=== PATIENT | male | born 1995 | race Caucasian/White ===

== ENCOUNTER 2016-12-07 19:07 | Emergency (ER) | payer OTHER ==
[2016-12-07] MEDS ORDERED: IBUPROFEN 600 MG TAB As Ordered ONE (19:55)
[2016-12-07 20:15] LABS: EOS # 0.1 K/mm3 (0.0-0.50); EOS % 0.8 % (0.0-3.0); LARGE UNSTAINED CELL # 0.1 K/mm3 (0.0-0.4); LARGE UNSTAINED CELL % 0.9 % (0.0-4.0); LYMPH # 0.6 K/mm3 (1.5-6.5); LYMPH % 8.7 % (24.0-44.0); MEAN CORPUSCULAR HEMOGLOBIN 30.9 pg (27.0-33.0); MEAN CORPUSCULAR HGB CONC 34.7 g/dl (32.0-36.5); MEAN CORPUSCULAR VOLUME 89.1 fl (80.0-96.0); MONO # 0.3 K/mm3 (0.0-0.8); MONO % 4.6 % (0.0-5.0); NEUTROPHILS # 5.6 K/mm3 (1.8-7.7); NEUTROPHILS % 84.8 % (36.0-66.0); PLATELET COUNT, AUTOMATED 194 k/mm3 (150-450); RED CELL DISTRIBUTION WIDTH 11.8 % (11.5-14.5); WHITE BLOOD COUNT 6.5 K/mm3 (4.0-10.0)
[2016-12-07 20:40] LABS: ANION GAP 7 MEQ/L (8-16); BLOOD UREA NITROGEN 8 MG/DL (7-18); CALCIUM LEVEL 8.4 MG/DL (8.5-10.1); CARBON DIOXIDE LEVEL 29 MEQ/L (21-32); CHLORIDE LEVEL 103 MEQ/L (98-107); GLOMERULAR FILTRATION RATE > 60.0 (>60); GLUCOSE, FASTING 106 MG/DL (70-105); POTASSIUM SERUM 3.6 MEQ/L (3.5-5.1); SODIUM LEVEL 139 MEQ/L (136-145)
[2016-12-07] MEDS ORDERED: ACETAMINOPHEN 325 MG TAB As Ordered ONE (21:33)
--- NOTE | 2016-12-07 23:03 | EDDOCDS ---
Nurse's Notes [facility] Name: Robert Casper Age: 21 yrs Sex: Male : 1995 Arrival Date: 12/07/2016 Time: 19:07 Bed 5 Private MD: Odette العراقي Diagnosis: Viral infection, unspecified Presentation: 12/07 19:09 Presenting complaint: Patient states: cold chills, diarrhea on an off for a week. has rs3 tried pseudofed, Motrin and Tylenol with no relief. Adult Sepsis Screening: The patient does not have new or worsening altered mentation. Patient's respiratory rate is less than 22. Systolic blood pressure is greater than 100. Patient has a qSOFA score of 0- Negative Sepsis Screen. Suicide/Homicide risk assessment- the patient denies having any suicidal and/or homicidal ideations and does not present with any other emotional, behavioral or mental health complaints. Status: The patient is an active duty truck service manager. Transition of care: patient was not received from another setting of care. 19:09 Acuity: EDEL Level 4 rs3 19:09 Method Of Arrival: Walkin/Carried/Asstd rs3 Triage Assessment: 19:11 General: Appears in no apparent distress. Pain: Location: abdomen. HIV screening NA for rs3 this visit Offered previously. GI: Reports upper abd pain, nausea. Historical: - Allergies: no known allergies; - Home Meds: 1. acetaminophen 500 mg Oral tab (Last dose: 12/07/2016 16:00) - PMHx: none; - PSHx: right arm surgery; - The history from nurses notes was reviewed: and elements of the historical information I have obtained differs from that reported to nursing. - Social history: Smoking status: Patient uses tobacco products, current some day smoker. No barriers to communication noted, The patient speaks fluent Bulgarian. - : The pt / caregiver states he / she is not on anticoagulants. Home medication list is obtained from the patient. - Hospitalizations: : No recent hospitalization is reported. - Exposure Risk Screening:: None identified. - Immunization history:: All immunizations up-to-date. - Family history: Not pertinent. - Social history:: the patient is a non-smoker, the patient drinks alcohol. Screenin:52 Screening information is obtained from the patient. Fall risk: No risks identified. nn1 Assistance ADL's: requires no assistance with activities of daily living. Abuse/DV Screen: The patient / caregiver reports he/she is: not in a situation that causes fear, pain or injury. Nutritional screening: No deficits noted. Advance Directives: There is no active DNR order. home support is adequate. Assessment: 19:49 General: Appears in no apparent distress, uncomfortable, Behavior is appropriate for nn1 age, cooperative. Pain: Location: abdomen Pain currently is 10 out of 10 on a pain scale. Pain began earlier today. Neurological: Level of Consciousness is awake, alert, obeys commands, Oriented to person, place, time. Respiratory: Airway is patent Respiratory effort is even, unlabored, Respiratory pattern is regular, symmetrical. GI: Abdomen is flat, non- distended Bowel sounds present X 4 quads. Abd is soft X 4 quads Abd is tender to palpation X 4 quads. Reports cramping, diarrhea, nausea, vomiting, diarrhea x 8 days, vomiting and abdominal pain began today. Denies blood in stool. Derm: Skin is pink, warm & dry. 20:21 General: Patient had bowel movement, scant amount of stool. Patient states he feels the nn1 urge to go but only produces scant amount of stool each time. Patient reports this has occurred since the first episode of diarrhea 8 days ago, reports increased abdominal pain following bowel movement. GI: Stools are reported to be diarrhea. 21:56 General: Appears in no apparent distress, comfortable, Behavior is appropriate for age, nn1 cooperative. Neurological: Level of Consciousness is awake, alert, obeys commands. Respiratory: Airway is patent Respiratory effort is even, unlabored, Respiratory pattern is regular, symmetrical. Derm: Skin is pink, warm & dry. 23:00 General: Appears in no apparent distress, comfortable, Behavior is appropriate for age, nn1 cooperative. Neurological: Level of Consciousness is awake, alert, obeys commands, Oriented to person, place, time. Respiratory: Airway is patent Respiratory effort is even, unlabored, Respiratory pattern is regular, symmetrical. Derm: Skin is pink, warm & dry. Vital Signs: 19:10 BP 121 / 74; Pulse 98; Resp 16; Temp 101.9(O); Pulse Ox 95% on R/A; Weight 74.84 kg elp (R); Height 6 ft. 0 in. (182.88 cm); 21:23 Temp 102.0(R); jmv 22:43 Temp 100.4(O); jmv 22:47 BP 130 / 62; Pulse 69; Resp 18; Pulse Ox 100% on R/A; Pain 5/10; mdr 19:10 Body Mass Index 22.38 (74.84 kg, 182.88 cm) [facility] Vitals: 19:10 Log In Time: December 07, 2016 at 19:08. [facility] ED Course: 19:09 Patient visited by Kaykay Barr PCA. elp 19:09 [facility] is Private Physician. elp 19:09 Patient moved to Waiting elp 19:10 Patient visited by Kaykay Barr PCA. elp 19:10 Patient moved to Pre RCE elp 19:11 Triage Initiated rs3 19:33 Camila Walker RN is Primary Nurse. kmg1 19:33 Matty Boucher MD is Attending Physician. pc 19:33 Patient moved to 5 kmg1 19:44 Patient visited by Matty Boucher MD. pc 20:06 MED Profile Sent. nn1 20:06 CBC with Diff Sent. nn1 20:06 -Influenza A&B Rapid Antigen - Nose Sent. nn1 20:06 Inserted saline lock: 20 gauge in right antecubital area and blood collected. The nn1 patient tolerated the procedure well. 20:08 Primary Nurse role handed off by Camila Walker, DANIEL sls1 20:49 Patient visited by Matty Boucher MD. pc 21:07 [facility] Payment Agreement was scanned into [employer] and attached to record. ks16 21:15 Patient visited by Sarah Rodriguez RN. kas2 21:23 Patient visited by Enzo Monreal PCA. jmv 21:56 Patient visited by Viridiana Quinteros RN. nn1 22:43 Patient visited by Enzo Monreal PCA. jmv 22:47 [facility] is Referral Physician. pc 22:51 Patient visited by Joesph Mccormick PCA. mdr 23:01 The patient / caregiver is instructed regarding the plan of care and ED course. nn1 23:01 No procedures done that require assistance. nn1 Administered Medications: 20:06 Drug: Ibuprofen 600 mg [ibuprofen 600 mg tablet (1 tabs)] Route: PO; nn1 21:36 Drug: Acetaminophen 975 mg [acetaminophen 325 mg tablet (3 tabs)] Route: PO; nn1 Order Results: Lab Order: MED Profile; SPEC'12/07/16 19:57 Test: GLUCOSE, FASTING; Value: 106; Range: 70-105; Abnormal: Above high normal; Units: MG/DL; Status: F Test: BLOOD UREA NITROGEN; Value: 8; Range: 7-18; Units: MG/DL; Status: F Test: CREATININE FOR GFR; Value: 1.10; Range: 0.70-1.30; Units: MG/DL; Status: F Test: GLOMERULAR FILTRATION RATE; Value: > 60.0; Range: >60; Status: F Test: SODIUM LEVEL; Value: 139; Range: 136-145; Units: MEQ/L; Status: F Test: POTASSIUM SERUM; Value: 3.6; Range: 3.5-5.1; Units: MEQ/L; Status: F Test: CHLORIDE LEVEL; Value: 103; Range: 98-107; Units: MEQ/L; Status: F Test: CARBON DIOXIDE LEVEL; Value: 29; Range: 21-32; Units: MEQ/L; Status: F Test: ANION GAP; Value: 7; Range: 8-16; Abnormal: Below low normal; Units: MEQ/L; Status: F Test: CALCIUM LEVEL; Value: 8.4; Range: 8.5-10.1; Abnormal: Below low normal; Units: MG/DL; Status: F Test Note: ; Units are mL/min/1.73 m2 Chronic Kidney Disease Staging per NKF: Stage I & II GFR >=60 Normal to Mildly Decreased Stage III GFR 30-59 Moderately Decreased Stage IV GFR 15-29 Severely Decreased Stage V GFR <15 Very Little GFR Left ESRD GFR <15 on SCRAP DROP OPERATOR Lab Order: CBC with Diff; SPEC'12/07/16 19:57 Test: WHITE BLOOD COUNT; Value: 6.5; Range: 4.0-10.0; Units: K/mm3; Status: F Test: RED BLOOD COUNT; Value: 4.75; Range: 4.30-6.10; Units: M/mm3; Status: F Test: HEMOGLOBIN; Value: 14.7; Range: 14.0-18.0; Units: g/dl; Status: F Test: HEMATOCRIT; Value: 42.3; Range: 42.0-52.0; Units: %; Status: F Test: MEAN CORPUSCULAR VOLUME; Value: 89.1; Range: 80.0-96.0; Units: fl; Status: F Test: MEAN CORPUSCULAR HEMOGLOBIN; Value: 30.9; Range: 27.0-33.0; Units: pg; Status: F Test: MEAN CORPUSCULAR HGB CONC; Value: 34.7; Range: 32.0-36.5; Units: g/dl; Status: F Test: RED CELL DISTRIBUTION WIDTH; Value: 11.8; Range: 11.5-14.5; Units: %; Status: F Test: PLATELET COUNT, AUTOMATED; Value: 194; Range: 150-450; Units: k/mm3; Status: F Test: NEUTROPHILS %; Value: 84.8; Range: 36.0-66.0; Abnormal: Above high normal; Units: %; Status: F Test: LYMPH %; Value: 8.7; Range: 24.0-44.0; Abnormal: Below low normal; Units: %; Status: F Test: MONO %; Value: 4.6; Range: 0.0-5.0; Units: %; Status: F Test: EOS %; Value: 0.8; Range: 0.0-3.0; Units: %; Status: F Test: BASO %; Value: 0.0; Range: 0.0-1.0; Units: %; Status: F Test: LARGE UNSTAINED CELL %; Value: 0.9; Range: 0.0-4.0; Units: %; Status: F Test: NEUTROPHILS #; Value: 5.6; Range: 1.8-7.7; Units: K/mm3; Status: F Test: LYMPH #; Value: 0.6; Range: 1.5-6.5; Abnormal: Below low normal; Units: K/mm3; Status: F Test: MONO #; Value: 0.3; Range: 0.0-0.8; Units: K/mm3; Status: F Test: EOS #; Value: 0.1; Range: 0.0-0.50; Units: K/mm3; Status: F Test: BASO #; Value: 0.0; Range: 0.0-0.2; Units: K/mm3; Status: F Test: LARGE UNSTAINED CELL #; Value: 0.1; Range: 0.0-0.4; Units: K/mm3; Status: F Lab Order: -Influenza A&B Rapid Antigen - Nose; SPEC'M 12/07/16 19:57 Test: INFLUENZA A RAPID SCR by ICA; Value: INFLUENZA A RESULTS NEGATIVE; Status: F Test: INFLUENZA A RAPID SCR by ICA; Value: Comments:; Status: F Test: INFLUENZA B RAPID SCR by ICA; Value: INFLUENZA B RESULTS NEGATIVE; Status: F Test Note: ; The Influenza test is a direct rapid immunoassay for the qualitative detection of Influenza viral antigen. Cell culture (Viral Culture) testing should be considered to confirm NEGATIVE results and to assist in detecting other viruses that can provide similar clinical symptoms. Please contact the lab within 24 hours ([phone]) if confirmatory testing is desired. Outcome: 22:47 Discharge ordered by Provider. 23:01 Discharge Assessment: Patient awake, alert and oriented x 3. No cognitive and/or nn1 functional deficits noted. Patient verbalized understanding of disposition instructions. patient administered narcotics - no. The following High Risk Discharge criteria are identified: None. Discharged to home ambulatory. Condition: stable Condition: improved. No special radiology studies were completed. Property :Personal belongings accompany Pt. 23:02 Patient left the ED. nn1 Signatures: Matty Boucher MD MD pc Garrison, Kelly, RN RN kmg1 Kellee WhittingtonRN RN rs3 Raegan Wilkinson RN RN sls1 Kaykay Barr, GUEST SERVICE SUPERVISOR GUEST SERVICE SUPERVISOR Viridiana Bess RN RN nn1 Joesph Mccormick, GUEST SERVICE SUPERVISOR GUEST SERVICE SUPERVISOR Jazz Borja, Reg Reg ks16 Sarah Rodriguez,RN RN kas2 Enzo Monreal, GUEST SERVICE SUPERVISOR GUEST SERVICE SUPERVISOR carolynv Corrections: (The following items were deleted from the chart) 19:11 19:09 Status: Patient is not a truck service manager or dependent. rs3 rs3 19:56 19:11 Home Meds: none; rs3 MTDD
--- NOTE | 2016-12-07 23:03 | EDDOCDS ---
Physician Documentation [facility] Name: Robert Casper Age: 21 yrs Sex: Male : 1995 Arrival Date: 12/07/2016 Time: 19:07 Bed 5 [facility] Disposition: 12/07 22:44 Critical Care: Critical care not applicable. pc Disposition: 12/07/16 22:47 Discharged to Home/Self Care. Impression: Viral infection, unspecified. - Condition is Stable. - Discharge Instructions: Viral Infections. - Prescriptions for Ibuprofen 600 mg Oral Tablet - take 1 tablet by ORAL route every 6 hours As needed take with food; 30 tablet. - Medication Reconciliation, Local Pharmacy Hours form. - [facility]; When: 2 - 3 days; Reason: Recheck today's complaints, Continuance of care. - Problem is an ongoing problem. - Symptoms have improved. HPI: 19:52 This 21 yrs old Male presents to ER via Walkin/Carried/Asstd with complaints pc of Nausea, Diarrhea, Fever. 19:52 The history is obtained from the patient. He has had intermittent fevers, chills, a pc cough and sinus congestion, with intermittent diarrhea, for 8 days. He was advised to use OTCs by his PCP. He has not had any relief. 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 The patient has experienced similar episodes in the past, a few times. Historical: - Allergies: no known allergies; - Home Meds: 1. acetaminophen 500 mg Oral tab (Last dose: 12/07/2016 16:00) - PMHx: none; - PSHx: right arm surgery; - The history from nurses notes was reviewed: and elements of the historical information I have obtained differs from that reported to nursing. - Social history: Smoking status: Patient uses tobacco products, current some day smoker. No barriers to communication noted, The patient speaks fluent Tajik. - : The pt / caregiver states he / she is not on anticoagulants. Home medication list is obtained from the patient. - Hospitalizations: : No recent hospitalization is reported. - Exposure Risk Screening:: None identified. - Immunization history:: All immunizations up-to-date. - Family history: Not pertinent. - Social history:: the patient is a non-smoker, the patient drinks alcohol. ROS: 19:55 All systems are negative except as listed. pc Exam: 19:55 General Appearance: no acute distress, alert. pc 19:55 EENT: normal eye inspection, ears, nose and throat normal, pharynx normal, mucous membranes moist 19:55 Neck: The exam reveals no acute abnormalities. ROM is normal and painless. No nuchal rigidity is noted.. 19:55 Respiratory: no respiratory distress, normal breath sounds. 19:55 CVS: regular pulse rate, regular rhythm, normal S1 and S2, no murmurs, strong peripheral pulses. 19:55 Abdomen: soft, non-tender, no organomegaly, bowel sounds hyperactive. 19:55 Back: normal inspection. 19:55 Skin: skin color is normal, warm, dry. 19:55 Extremities: The extremities have a grossly normal appearance, are non-tender, without acute ROM abnormalities. 19:55 Neuro: oriented x 3, cranial nerves normal as tested, no motor deficits, no sensory deficits, normal gait. Vital Signs: 19:10 BP 121 / 74; Pulse 98; Resp 16; Temp 101.9(O); Pulse Ox 95% on R/A; Weight 74.84 kg / elp 164.99 lbs (R); Height 6 ft. 0 in. (182.88 cm); 21:23 Temp 102.0(R); jmv 22:43 Temp 100.4(O); jmv 22:47 BP 130 / 62; Pulse 69; Resp 18; Pulse Ox 100% on R/A; Pain 5/10; mdr 19:10 Body Mass Index 22.38 (74.84 kg, 182.88 cm) elp MDM: 19:47 Financial registration complete. ks16 19:51 IV Saline Lock ordered. pc 19:51 Obtain sample by nasopharyngeal swab ordered. pc 19:51 Stool samples ordered. pc 19:51 Ibuprofen 600 mg PO once ordered. pc 19:51 MED Profile Ordered. EDMS 19:51 CBC with Diff Ordered. EDMS 19:51 -Influenza A&B Rapid Antigen - Nose Ordered. EDMS 19:51 Chest, 2 View (pa\E\lat) Ordered. EDMS 19:55 Differential Diagnosis: influenza, VGE. Plan: labs, meds. pc 20:49 MED Profile Reviewed. pc 20:49 CBC with Diff Reviewed. pc 20:49 -Influenza A&B Rapid Antigen - Nose Reviewed. pc 21:07 [facility] Payment Agreement was scanned into [employer] and attached to record. ks16 :07 Data reviewed: old medical records, vital signs, nurses notes, lab test results, all radiology studies and available results. Test interpretation: LAB - all labs as ordered have been reviewed, interpreted and considered in the overall management of the clinical presentation; X-RAY - interpreted by me, 2 view chest, no acute disease. ED course: He has not had any diarrhea while in the ED. When his fever responds to Motrin, he will able to be discharged and follow up with his medic Friday morning. 21:08 Repeat Temperature - Rectal: Inform provider of result ordered. pc 21:24 Acetaminophen Tablet 975 mg PO once ordered. pc 22:36 Repeat Temperature - Oral: Inform provider of result ordered. pc 22:44 The patient has been re-examined and re-evaluated. The patient's symptoms have markedly pc improved after treatment. Disposition: The historical points, examination findings, and any diagnostic results supporting the provided diagnosis, were discussed with the patient or legal guardian. The need for outpatient follow up with the provider listed on their discharge instructions was discussed. They were encouraged to return to [facility], or the nearest ED, if symptoms worsen/persist, or for any other questions/concerns. Administered Medications: 20:06 Drug: Ibuprofen 600 mg [ibuprofen 600 mg tablet (1 tabs)] Route: PO; nn1 21:36 Drug: Acetaminophen 975 mg [acetaminophen 325 mg tablet (3 tabs)] Route: PO; nn1 Signatures: Dispatcher [employer] EDMS Matty Boucher MD MD pc Soosairaj, Rosemary, RN RN rs3 Viridiana Quinteros RN RN nn1 Jazz Nicolas, Reg Reg ks16 The chart was reviewed and I authenticate all verbal orders and agree with the evaluation and treatment provided.Corrections: (The following items were deleted from the chart) 19:56 19:11 Home Meds: none; rs3 Attachments: 21:07 [facility] Payment Agreement ks16 MTDD
--- NOTE | 2016-12-08 13:39 | REP ---
CHEST PA AND LATERAL: 12/07/2016. Clinical history: Cough. No prior study. Findings: The two-view show lungs well inflated and without infiltrate or effusion. The heart, mediastinal and hilar contours are normal. Airway intact. Bony thorax unremarkable. Impression: 1. No acute cardiopulmonary change. Signed by Zain Haynes MD 12/08/2016 07:21 P
--- NOTE | 2016-12-10 00:03 | EDDOCDS ---
Physician Documentation [facility] Name: Robert Casper Age: 21 yrs Sex: Male : 1995 Arrival Date: 12/07/2016 Time: 19:07 Bed 5 [facility] Disposition: 12/07 22:44 Critical Care: Critical care not applicable. pc Disposition: 12/07/16 22:47 Discharged to Home/Self Care. Impression: Viral infection, unspecified. - Condition is Stable. - Discharge Instructions: Viral Infections. - Prescriptions for Ibuprofen 600 mg Oral Tablet - take 1 tablet by ORAL route every 6 hours As needed take with food; 30 tablet. - Medication Reconciliation, Local Pharmacy Hours form. - [facility]; When: 2 - 3 days; Reason: Recheck today's complaints, Continuance of care. - Problem is an ongoing problem. - Symptoms have improved. HPI: 19:52 This 21 yrs old Male presents to ER via Walkin/Carried/Asstd with complaints pc of Nausea, Diarrhea, Fever. 19:52 The history is obtained from the patient. He has had intermittent fevers, chills, a pc cough and sinus congestion, with intermittent diarrhea, for 8 days. He was advised to use OTCs by his PCP. He has not had any relief. 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 The patient has experienced similar episodes in the past, a few times. Historical: - Allergies: no known allergies; - Home Meds: 1. acetaminophen 500 mg Oral tab (Last dose: 12/07/2016 16:00) - PMHx: none; - PSHx: right arm surgery; - The history from nurses notes was reviewed: and elements of the historical information I have obtained differs from that reported to nursing. - Social history: Smoking status: Patient uses tobacco products, current some day smoker. No barriers to communication noted, The patient speaks fluent Turkish. - : The pt / caregiver states he / she is not on anticoagulants. Home medication list is obtained from the patient. - Hospitalizations: : No recent hospitalization is reported. - Exposure Risk Screening:: None identified. - Immunization history:: All immunizations up-to-date. - Family history: Not pertinent. - Social history:: the patient is a non-smoker, the patient drinks alcohol. ROS: 19:55 All systems are negative except as listed. pc Exam: 19:55 General Appearance: no acute distress, alert. pc 19:55 EENT: normal eye inspection, ears, nose and throat normal, pharynx normal, mucous membranes moist 19:55 Neck: The exam reveals no acute abnormalities. ROM is normal and painless. No nuchal rigidity is noted.. 19:55 Respiratory: no respiratory distress, normal breath sounds. 19:55 CVS: regular pulse rate, regular rhythm, normal S1 and S2, no murmurs, strong peripheral pulses. 19:55 Abdomen: soft, non-tender, no organomegaly, bowel sounds hyperactive. 19:55 Back: normal inspection. 19:55 Skin: skin color is normal, warm, dry. 19:55 Extremities: The extremities have a grossly normal appearance, are non-tender, without acute ROM abnormalities. 19:55 Neuro: oriented x 3, cranial nerves normal as tested, no motor deficits, no sensory deficits, normal gait. Vital Signs: 19:10 BP 121 / 74; Pulse 98; Resp 16; Temp 101.9(O); Pulse Ox 95% on R/A; Weight 74.84 kg / elp 164.99 lbs (R); Height 6 ft. 0 in. (182.88 cm); 21:23 Temp 102.0(R); jmv 22:43 Temp 100.4(O); jmv 22:47 BP 130 / 62; Pulse 69; Resp 18; Pulse Ox 100% on R/A; Pain 5/10; mdr 19:10 Body Mass Index 22.38 (74.84 kg, 182.88 cm) elp MDM: 19:47 Financial registration complete. ks16 19:51 IV Saline Lock ordered. pc 19:51 Obtain sample by nasopharyngeal swab ordered. pc 19:51 Stool samples ordered. pc 19:51 Ibuprofen 600 mg PO once ordered. pc 19:51 MED Profile Ordered. EDMS 19:51 CBC with Diff Ordered. EDMS 19:51 -Influenza A&B Rapid Antigen - Nose Ordered. EDMS 19:51 Chest, 2 View (pa\E\lat) Ordered. EDMS 19:55 Differential Diagnosis: influenza, VGE. Plan: labs, meds. pc 20:49 MED Profile Reviewed. pc 20:49 CBC with Diff Reviewed. pc 20:49 -Influenza A&B Rapid Antigen - Nose Reviewed. pc 21:07 [facility] Payment Agreement was scanned into [employer] and attached to record. ks16 :07 Data reviewed: old medical records, vital signs, nurses notes, lab test results, all radiology studies and available results. Test interpretation: LAB - all labs as ordered have been reviewed, interpreted and considered in the overall management of the clinical presentation; X-RAY - interpreted by me, 2 view chest, no acute disease. ED course: He has not had any diarrhea while in the ED. When his fever responds to Motrin, he will able to be discharged and follow up with his medic Friday morning. 21:08 Repeat Temperature - Rectal: Inform provider of result ordered. pc 21:24 Acetaminophen Tablet 975 mg PO once ordered. pc 22:36 Repeat Temperature - Oral: Inform provider of result ordered. pc 22:44 The patient has been re-examined and re-evaluated. The patient's symptoms have markedly pc improved after treatment. Disposition: The historical points, examination findings, and any diagnostic results supporting the provided diagnosis, were discussed with the patient or legal guardian. The need for outpatient follow up with the provider listed on their discharge instructions was discussed. They were encouraged to return to [facility], or the nearest ED, if symptoms worsen/persist, or for any other questions/concerns. Administered Medications: 20:06 Drug: Ibuprofen 600 mg [ibuprofen 600 mg tablet (1 tabs)] Route: PO; nn1 21:36 Drug: Acetaminophen 975 mg [acetaminophen 325 mg tablet (3 tabs)] Route: PO; nn1 Signatures: Dispatcher [employer] EDMS Matty Boucher MD MD pc Soosairaj, Rosemary, RN RN rs3 Viridiana Quinteros RN RN nn1 Jazz Nicolas, Reg Reg ks16 The chart was reviewed and I authenticate all verbal orders and agree with the evaluation and treatment provided.Corrections: (The following items were deleted from the chart) 19:56 19:11 Home Meds: none; rs3 Attachments: 21:07 [facility] Payment Agreement ks16 Chart Complete MTDD
--- NOTE | 2016-12-10 00:03 | EDDOCDS ---
Nurse's Notes [facility] Name: Robert Casper Age: 21 yrs Sex: Male : 1995 Arrival Date: 12/07/2016 Time: 19:07 Bed 5 Private MD: Odette العراقي Diagnosis: Viral infection, unspecified Presentation: 12/07 19:09 Presenting complaint: Patient states: cold chills, diarrhea on an off for a week. has rs3 tried pseudofed, Motrin and Tylenol with no relief. Adult Sepsis Screening: The patient does not have new or worsening altered mentation. Patient's respiratory rate is less than 22. Systolic blood pressure is greater than 100. Patient has a qSOFA score of 0- Negative Sepsis Screen. Suicide/Homicide risk assessment- the patient denies having any suicidal and/or homicidal ideations and does not present with any other emotional, behavioral or mental health complaints. Status: The patient is an active duty financial services rep. Transition of care: patient was not received from another setting of care. 19:09 Acuity: EDEL Level 4 rs3 19:09 Method Of Arrival: Walkin/Carried/Asstd rs3 Triage Assessment: 19:11 General: Appears in no apparent distress. Pain: Location: abdomen. HIV screening NA for rs3 this visit Offered previously. GI: Reports upper abd pain, nausea. Historical: - Allergies: no known allergies; - Home Meds: 1. acetaminophen 500 mg Oral tab (Last dose: 12/07/2016 16:00) - PMHx: none; - PSHx: right arm surgery; - The history from nurses notes was reviewed: and elements of the historical information I have obtained differs from that reported to nursing. - Social history: Smoking status: Patient uses tobacco products, current some day smoker. No barriers to communication noted, The patient speaks fluent Nepali. - : The pt / caregiver states he / she is not on anticoagulants. Home medication list is obtained from the patient. - Hospitalizations: : No recent hospitalization is reported. - Exposure Risk Screening:: None identified. - Immunization history:: All immunizations up-to-date. - Family history: Not pertinent. - Social history:: the patient is a non-smoker, the patient drinks alcohol. Screenin:52 Screening information is obtained from the patient. Fall risk: No risks identified. nn1 Assistance ADL's: requires no assistance with activities of daily living. Abuse/DV Screen: The patient / caregiver reports he/she is: not in a situation that causes fear, pain or injury. Nutritional screening: No deficits noted. Advance Directives: There is no active DNR order. home support is adequate. Assessment: 19:49 General: Appears in no apparent distress, uncomfortable, Behavior is appropriate for nn1 age, cooperative. Pain: Location: abdomen Pain currently is 10 out of 10 on a pain scale. Pain began earlier today. Neurological: Level of Consciousness is awake, alert, obeys commands, Oriented to person, place, time. Respiratory: Airway is patent Respiratory effort is even, unlabored, Respiratory pattern is regular, symmetrical. GI: Abdomen is flat, non- distended Bowel sounds present X 4 quads. Abd is soft X 4 quads Abd is tender to palpation X 4 quads. Reports cramping, diarrhea, nausea, vomiting, diarrhea x 8 days, vomiting and abdominal pain began today. Denies blood in stool. Derm: Skin is pink, warm & dry. 20:21 General: Patient had bowel movement, scant amount of stool. Patient states he feels the nn1 urge to go but only produces scant amount of stool each time. Patient reports this has occurred since the first episode of diarrhea 8 days ago, reports increased abdominal pain following bowel movement. GI: Stools are reported to be diarrhea. 21:56 General: Appears in no apparent distress, comfortable, Behavior is appropriate for age, nn1 cooperative. Neurological: Level of Consciousness is awake, alert, obeys commands. Respiratory: Airway is patent Respiratory effort is even, unlabored, Respiratory pattern is regular, symmetrical. Derm: Skin is pink, warm & dry. 23:00 General: Appears in no apparent distress, comfortable, Behavior is appropriate for age, nn1 cooperative. Neurological: Level of Consciousness is awake, alert, obeys commands, Oriented to person, place, time. Respiratory: Airway is patent Respiratory effort is even, unlabored, Respiratory pattern is regular, symmetrical. Derm: Skin is pink, warm & dry. Vital Signs: 19:10 BP 121 / 74; Pulse 98; Resp 16; Temp 101.9(O); Pulse Ox 95% on R/A; Weight 74.84 kg elp (R); Height 6 ft. 0 in. (182.88 cm); 21:23 Temp 102.0(R); jmv 22:43 Temp 100.4(O); jmv 22:47 BP 130 / 62; Pulse 69; Resp 18; Pulse Ox 100% on R/A; Pain 5/10; mdr 19:10 Body Mass Index 22.38 (74.84 kg, 182.88 cm) elp Vitals: 19:10 Log In Time: December 07, 2016 at 19:08. [facility] ED Course: 19:09 Patient visited by Kaykay Barr PCA. elp 19:09 [facility] is Private Physician. elp 19:09 Patient moved to Waiting elp 19:10 Patient visited by Kaykay Barr PCA. elp 19:10 Patient moved to Pre RCE elp 19:11 Triage Initiated rs3 19:33 Camila Walker RN is Primary Nurse. kmg1 19:33 Matty Boucher MD is Attending Physician. pc 19:33 Patient moved to 5 kmg1 19:44 Patient visited by Matty Boucher MD. pc 20:06 MED Profile Sent. nn1 20:06 CBC with Diff Sent. nn1 20:06 -Influenza A&B Rapid Antigen - Nose Sent. nn1 20:06 Inserted saline lock: 20 gauge in right antecubital area and blood collected. The nn1 patient tolerated the procedure well. 20:08 Primary Nurse role handed off by Camila Walker, DANIEL sls1 20:49 Patient visited by Matty Boucher MD. pc 21:07 [facility] Payment Agreement was scanned into [employer] and attached to record. ks16 21:15 Patient visited by Sarah Rodriguez RN. kas2 21:23 Patient visited by Enzo Monreal PCA. jmv 21:56 Patient visited by Viridiana Quinteros RN. nn1 22:43 Patient visited by Enzo Monreal PCA. jmv 22:47 [facility] is Referral Physician. pc 22:51 Patient visited by Joesph Mccormick PCA. mdr 23:01 The patient / caregiver is instructed regarding the plan of care and ED course. nn1 23:01 No procedures done that require assistance. nn1 12/08 13:56 Chest, 2 View (pa\E\lat) Returned. EDMS Administered Medications: 12/07 20:06 Drug: Ibuprofen 600 mg [ibuprofen 600 mg tablet (1 tabs)] Route: PO; nn1 21:36 Drug: Acetaminophen 975 mg [acetaminophen 325 mg tablet (3 tabs)] Route: PO; nn1 Order Results: Lab Order: MED Profile; SPEC'M 12/07/16 19:57 Test: GLUCOSE, FASTING; Value: 106; Range: 70-105; Abnormal: Above high normal; Units: MG/DL; Status: F Test: BLOOD UREA NITROGEN; Value: 8; Range: 7-18; Units: MG/DL; Status: F Test: CREATININE FOR GFR; Value: 1.10; Range: 0.70-1.30; Units: MG/DL; Status: F Test: GLOMERULAR FILTRATION RATE; Value: > 60.0; Range: >60; Status: F Test: SODIUM LEVEL; Value: 139; Range: 136-145; Units: MEQ/L; Status: F Test: POTASSIUM SERUM; Value: 3.6; Range: 3.5-5.1; Units: MEQ/L; Status: F Test: CHLORIDE LEVEL; Value: 103; Range: 98-107; Units: MEQ/L; Status: F Test: CARBON DIOXIDE LEVEL; Value: 29; Range: 21-32; Units: MEQ/L; Status: F Test: ANION GAP; Value: 7; Range: 8-16; Abnormal: Below low normal; Units: MEQ/L; Status: F Test: CALCIUM LEVEL; Value: 8.4; Range: 8.5-10.1; Abnormal: Below low normal; Units: MG/DL; Status: F Test Note: ; Units are mL/min/1.73 m2 Chronic Kidney Disease Staging per NKF: Stage I & II GFR >=60 Normal to Mildly Decreased Stage III GFR 30-59 Moderately Decreased Stage IV GFR 15-29 Severely Decreased Stage V GFR <15 Very Little GFR Left ESRD GFR <15 on MANAGER CONVENTION Lab Order: CBC with Diff; SPEC'M 12/07/16 19:57 Test: WHITE BLOOD COUNT; Value: 6.5; Range: 4.0-10.0; Units: K/mm3; Status: F Test: RED BLOOD COUNT; Value: 4.75; Range: 4.30-6.10; Units: M/mm3; Status: F Test: HEMOGLOBIN; Value: 14.7; Range: 14.0-18.0; Units: g/dl; Status: F Test: HEMATOCRIT; Value: 42.3; Range: 42.0-52.0; Units: %; Status: F Test: MEAN CORPUSCULAR VOLUME; Value: 89.1; Range: 80.0-96.0; Units: fl; Status: F Test: MEAN CORPUSCULAR HEMOGLOBIN; Value: 30.9; Range: 27.0-33.0; Units: pg; Status: F Test: MEAN CORPUSCULAR HGB CONC; Value: 34.7; Range: 32.0-36.5; Units: g/dl; Status: F Test: RED CELL DISTRIBUTION WIDTH; Value: 11.8; Range: 11.5-14.5; Units: %; Status: F Test: PLATELET COUNT, AUTOMATED; Value: 194; Range: 150-450; Units: k/mm3; Status: F Test: NEUTROPHILS %; Value: 84.8; Range: 36.0-66.0; Abnormal: Above high normal; Units: %; Status: F Test: LYMPH %; Value: 8.7; Range: 24.0-44.0; Abnormal: Below low normal; Units: %; Status: F Test: MONO %; Value: 4.6; Range: 0.0-5.0; Units: %; Status: F Test: EOS %; Value: 0.8; Range: 0.0-3.0; Units: %; Status: F Test: BASO %; Value: 0.0; Range: 0.0-1.0; Units: %; Status: F Test: LARGE UNSTAINED CELL %; Value: 0.9; Range: 0.0-4.0; Units: %; Status: F Test: NEUTROPHILS #; Value: 5.6; Range: 1.8-7.7; Units: K/mm3; Status: F Test: LYMPH #; Value: 0.6; Range: 1.5-6.5; Abnormal: Below low normal; Units: K/mm3; Status: F Test: MONO #; Value: 0.3; Range: 0.0-0.8; Units: K/mm3; Status: F Test: EOS #; Value: 0.1; Range: 0.0-0.50; Units: K/mm3; Status: F Test: BASO #; Value: 0.0; Range: 0.0-0.2; Units: K/mm3; Status: F Test: LARGE UNSTAINED CELL #; Value: 0.1; Range: 0.0-0.4; Units: K/mm3; Status: F Lab Order: -Influenza A&B Rapid Antigen - Nose; SPEC'M 12/07/16 19:57 Test: INFLUENZA A RAPID SCR by ICA; Value: INFLUENZA A RESULTS NEGATIVE; Status: F Test: INFLUENZA A RAPID SCR by ICA; Value: Comments:; Status: F Test: INFLUENZA B RAPID SCR by ICA; Value: INFLUENZA B RESULTS NEGATIVE; Status: F Test Note: ; The Influenza test is a direct rapid immunoassay for the qualitative detection of Influenza viral antigen. Cell culture (Viral Culture) testing should be considered to confirm NEGATIVE results and to assist in detecting other viruses that can provide similar clinical symptoms. Please contact the lab within 24 hours ([phone]) if confirmatory testing is desired. Radiology Order: Chest, 2 View (pa\E\lat) Test: Chest, 2 View (pa\E\lat) REASON FOR EXAMINATION: Cough; CHEST PA AND LATERAL: 12/07/2016.; ; Clinical history: Cough.; ; No prior study.; ; Findings: The two-view show lungs well inflated and without infiltrate or; effusion. The heart, mediastinal and hilar contours are normal. Airway intact.; Bony thorax unremarkable.; ; Impression:; ; 1. No acute cardiopulmonary change.; ; ; Signed by; Zain Haynes MD 12/08/2016 07:21 P; Outcome: 22:47 Discharge ordered by Provider. pc 23:01 Discharge Assessment: Patient awake, alert and oriented x 3. No cognitive and/or nn1 functional deficits noted. Patient verbalized understanding of disposition instructions. patient administered narcotics - no. The following High Risk Discharge criteria are identified: None. Discharged to home ambulatory. Condition: stable Condition: improved. No special radiology studies were completed. Property :Personal belongings accompany Pt. 23:02 Patient left the ED. nn1 Signatures: Dispatcher [employer] EDMatty Gaines MD MD pc Garrison, Kelly, RN RN [facility] [place] Kellee Whittington,RN RN rs3 Minh, Raegan RN RN sls1 Kaykay Barr, [employer]PA[employer]ER [employer] elp Aldair,Viridiana,RN RN nn1 Joesph Mccormick, [employer] REPAIRER [employer] REPA[employer]ER mdr Jazz Nicolas, Reg Reg ks16 Sarah Rodriguez RN RN kas2 Enzo Monreal, [employer] REPAIRER [employer] REPAIRER jmv Corrections: (The following items were deleted from the chart) 19:11 19:09 Status: Patient is not a financial services rep or dependent. rs3 rs3 19:56 19:11 Home Meds: none; rs3 pc Chart Complete MTDD
--- NOTE | 2016-12-10 00:03 | EDDOCDS ---
Physician Documentation [facility] Name: Robert Casper Age: 21 yrs Sex: Male : 1995 Arrival Date: 12/07/2016 Time: 19:07 Bed 5 [facility] Disposition: 12/07 22:44 Critical Care: Critical care not applicable. pc Disposition: 12/07/16 22:47 Discharged to Home/Self Care. Impression: Viral infection, unspecified. - Condition is Stable. - Discharge Instructions: Viral Infections. - Prescriptions for Ibuprofen 600 mg Oral Tablet - take 1 tablet by ORAL route every 6 hours As needed take with food; 30 tablet. - Medication Reconciliation, Local Pharmacy Hours form. - [facility]; When: 2 - 3 days; Reason: Recheck today's complaints, Continuance of care. - Problem is an ongoing problem. - Symptoms have improved. HPI: 19:52 This 21 yrs old Male presents to ER via Walkin/Carried/Asstd with complaints pc of Nausea, Diarrhea, Fever. 19:52 The history is obtained from the patient. He has had intermittent fevers, chills, a pc cough and sinus congestion, with intermittent diarrhea, for 8 days. He was advised to use OTCs by his PCP. He has not had any relief. 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 The patient has experienced similar episodes in the past, a few times. Historical: - Allergies: no known allergies; - Home Meds: 1. acetaminophen 500 mg Oral tab (Last dose: 12/07/2016 16:00) - PMHx: none; - PSHx: right arm surgery; - The history from nurses notes was reviewed: and elements of the historical information I have obtained differs from that reported to nursing. - Social history: Smoking status: Patient uses tobacco products, current some day smoker. No barriers to communication noted, The patient speaks fluent Croatian. - : The pt / caregiver states he / she is not on anticoagulants. Home medication list is obtained from the patient. - Hospitalizations: : No recent hospitalization is reported. - Exposure Risk Screening:: None identified. - Immunization history:: All immunizations up-to-date. - Family history: Not pertinent. - Social history:: the patient is a non-smoker, the patient drinks alcohol. ROS: 19:55 All systems are negative except as listed. pc Exam: 19:55 General Appearance: no acute distress, alert. pc 19:55 EENT: normal eye inspection, ears, nose and throat normal, pharynx normal, mucous membranes moist 19:55 Neck: The exam reveals no acute abnormalities. ROM is normal and painless. No nuchal rigidity is noted.. 19:55 Respiratory: no respiratory distress, normal breath sounds. 19:55 CVS: regular pulse rate, regular rhythm, normal S1 and S2, no murmurs, strong peripheral pulses. 19:55 Abdomen: soft, non-tender, no organomegaly, bowel sounds hyperactive. 19:55 Back: normal inspection. 19:55 Skin: skin color is normal, warm, dry. 19:55 Extremities: The extremities have a grossly normal appearance, are non-tender, without acute ROM abnormalities. 19:55 Neuro: oriented x 3, cranial nerves normal as tested, no motor deficits, no sensory deficits, normal gait. Vital Signs: 19:10 BP 121 / 74; Pulse 98; Resp 16; Temp 101.9(O); Pulse Ox 95% on R/A; Weight 74.84 kg / elp 164.99 lbs (R); Height 6 ft. 0 in. (182.88 cm); 21:23 Temp 102.0(R); jmv 22:43 Temp 100.4(O); jmv 22:47 BP 130 / 62; Pulse 69; Resp 18; Pulse Ox 100% on R/A; Pain 5/10; mdr 19:10 Body Mass Index 22.38 (74.84 kg, 182.88 cm) elp MDM: 19:47 Financial registration complete. ks16 19:51 IV Saline Lock ordered. pc 19:51 Obtain sample by nasopharyngeal swab ordered. pc 19:51 Stool samples ordered. pc 19:51 Ibuprofen 600 mg PO once ordered. pc 19:51 MED Profile Ordered. EDMS 19:51 CBC with Diff Ordered. EDMS 19:51 -Influenza A&B Rapid Antigen - Nose Ordered. EDMS 19:51 Chest, 2 View (pa\E\lat) Ordered. EDMS 19:55 Differential Diagnosis: influenza, VGE. Plan: labs, meds. pc 20:49 MED Profile Reviewed. pc 20:49 CBC with Diff Reviewed. pc 20:49 -Influenza A&B Rapid Antigen - Nose Reviewed. pc 21:07 [facility] Payment Agreement was scanned into [employer] and attached to record. ks16 :07 Data reviewed: old medical records, vital signs, nurses notes, lab test results, all radiology studies and available results. Test interpretation: LAB - all labs as ordered have been reviewed, interpreted and considered in the overall management of the clinical presentation; X-RAY - interpreted by me, 2 view chest, no acute disease. ED course: He has not had any diarrhea while in the ED. When his fever responds to Motrin, he will able to be discharged and follow up with his medic Friday morning. 21:08 Repeat Temperature - Rectal: Inform provider of result ordered. pc 21:24 Acetaminophen Tablet 975 mg PO once ordered. pc 22:36 Repeat Temperature - Oral: Inform provider of result ordered. pc 22:44 The patient has been re-examined and re-evaluated. The patient's symptoms have markedly pc improved after treatment. Disposition: The historical points, examination findings, and any diagnostic results supporting the provided diagnosis, were discussed with the patient or legal guardian. The need for outpatient follow up with the provider listed on their discharge instructions was discussed. They were encouraged to return to [facility], or the nearest ED, if symptoms worsen/persist, or for any other questions/concerns. Administered Medications: 20:06 Drug: Ibuprofen 600 mg [ibuprofen 600 mg tablet (1 tabs)] Route: PO; nn1 21:36 Drug: Acetaminophen 975 mg [acetaminophen 325 mg tablet (3 tabs)] Route: PO; nn1 Signatures: Dispatcher [employer] EDMS Matty Boucher MD MD pc Soosairaj, Rosemary, RN RN rs3 Viridiana Quinteros RN RN nn1 Jazz Nicolas, Reg Reg ks16 The chart was reviewed and I authenticate all verbal orders and agree with the evaluation and treatment provided.Corrections: (The following items were deleted from the chart) 19:56 19:11 Home Meds: none; rs3 Attachments: 21:07 [facility] Payment Agreement ks16 Chart Complete MTDD
== END 2016-12-07 23:02 | disposition home or self-care (01) ==
LOC: M ED 19:07
DX: B34.9 Viral infection, unspecified (principal); F17.210 Nicotine dependence, cigarettes, uncomplicated